=== PATIENT | female | born 1985 | race Caucasian/White ===

== ENCOUNTER 2018-09-09 15:01 | Emergency (ER) | payer OTHER ==
[2018-09-09 15:11] VITALS: BMI 21.2
[2018-09-09] MEDS ORDERED: ONDANSETRON 4 MG/2 ML VIAL IVPUSH ONE (15:11)
[2018-09-09] MEDS ORDERED: ACETAMINOPHEN 1000 MG/100 ML VIAL (NON FORMULARY) IVPB ONE (15:11)
--- NOTE | 2018-09-09 15:11 | PDOC ---
Rapid Medical Evaluation Medical Evaluation: Allergies Allergy/AdvReac Type Severity Reaction Status Date / Time No Known Allergies Allergy Verified 12/31/17 12:10 I have performed a brief in-person evaluation of this patient. The patient presents with a chief complaint of: was sent from clinic for RLQ abd pain from yesterday along with nausea; denies fever, vomiting, diarrhea, urinary complaints; no prior abd surgeries Pertinent physical exam findings: In nad, abdomen soft/NT I have ordered the following: labs The patient will proceed to the ED for further evaluation. 09/09/18 15:10
[2018-09-09] MEDS ORDERED: ONDANSETRON 4 MG/2 ML VIAL ONE (17:40)
[2018-09-09] MEDS ORDERED: ACETAMINOPHEN INJECTION 100 ML IVPB ONE (17:41)
[2018-09-09 18:19] LABS: PH,URINE 8.5 (5.0-8.0); URINE APPEARANCE CLOUDY; URINE BILIRUBIN NEGATIVE (NEGATIVE); URINE COLOR YELLOW; URINE GLUCOSE (UA) NEGATIVE (NEGATIVE); URINE KETONE NEGATIVE (NEGATIVE); URINE LEUK ESTERASE NEGATIVE (NEGATIVE); URINE NITRITE NEGATIVE (NEGATIVE); URINE PROTEIN NEGATIVE (NEGATIVE)
[2018-09-09 18:29] LABS: ALBUMIN 3.8 g/dl (3.4-5.0); BILIRUBIN,TOTAL 0.3 mg/dL (0.2-1); CALCIUM 9.2 mg/dL (8.5-10.1); CREATININE 0.8 mg/dL (0.55-1.3); POTASSIUM 4.4 mmol/L (3.5-5.1); TOT PROT 7.3 g/dl (6.4-8.2)
--- NOTE | 2018-09-09 18:30 | PDOC ---
History of Present Illness - General Chief Complaint: Pain Stated Complaint: ABD PAIN Time Seen by Provider: 09/09/18 15:08 History Source: Patient Exam Limitations: No Limitations - History of Present Illness Travel History: No Initial Comments: 09/09/18 18:05 33-year-old female presents to ED with complaints of right suprapubic pain since this morning worsened with movement. Patient denies nausea, urinary complaints, fever, chills, irregular menses or vaginal discharge. Patient states went to urgent care clinic and was referred here secondary to locality of discomfort. Timing/Duration: reports: constant, intermittent Quality: reports: mild Abdominal Pain Onset Location: reports: suprapubic Activities at Onset: reports: exertion Aggravating Factors: improves with: Movement Alleviating Factors: improves with: Rest Past History - Travel Traveled outside of the country in the last 30 days: No Close contact w/someone who was outside of country & ill: No - Past Medical History Allergies/Adverse Reactions: Allergies Allergy/AdvReac Type Severity Reaction Status Date / Time No Known Allergies Allergy Verified 09/09/18 15:12 Home Medications: Ambulatory Orders Acetaminophen 2 tab PO Q6H PRN #60 tablet 01/14/18 Sulfamethoxazole/Trimethoprim [Bactrim Ds -] 1 tab PO WEEKLY #12 tablet Triamcinolone 0.025% Cream [Aristocort 0.025% Cream -] 1 applic TP DAILY #15 tube 06/12/18 Loratadine [Claritin -] 10 mg PO DAILY PRN #30 tablet 06/26/18 Sodium Chloride [Saline Nasal Oneco] 1 - 2 sprays NS PRN #1 spray 06/26/18 Bictegrav/Emtricit/Tenofov Ala [Biktarvy 50-200-25 mg Tablet] 1 each PO DAILY # 30 tablet 09/04/18 Metronidazole [Metrogel] 1 applic TP DAILY #60 gel..gram. 09/04/18 Multivitamin,Ther and Minerals [Vitamin and Minerals] 1 each PO DAILY #30 tablet 09/04/18 Paroxetine HCl [Paxil] 10 mg PO AM #30 tablet 09/04/18 Ibuprofen 600 mg PO QID #20 tablet 09/09/18 Anemia: No Asthma: No Cancer: No Cardiac Disorders: No CVA: No COPD: No CHF: No Dementia: No Diabetes: No GI Disorders: No Disorders: No HTN: No Hypercholesterolemia: No Liver Disease: No Seizures: No Thyroid Disease: No - Suicide/Smoking/Psychosocial Hx Smoking History: Never smoked Information on smoking cessation initiated: No Hx Alcohol Use: No Drug/Substance Use Hx: No Hx Substance Use Treatment: No Patient Lives Alone: No Lives with/in: spouse/SO Review of Systems - Review of Systems Able to Perform ROS?: Yes Constitutional: No: Symptoms Reported HEENTM: No: Symptoms Reported Respiratory: No: Symptoms reported Cardiac (ROS): No: Symptoms Reported ABD/GI: Yes: Abdominal cramping : No: Symptoms Reported Musculoskeletal: No: Symptoms Reported Integumentary: No: Symptoms Reported Neurological: No: Symptoms reported Endocrine: No: Symptoms Reported Hematologic/Lymphatic: No: Symptoms Reported *Physical Exam - Vital Signs Last Vital Signs Temp Pulse Resp BP Pulse Ox 98.6 F 79 19 140/68 09/09/18 15:09 09/09/18 15:09 09/09/18 15:09 09/09/18 15:09 - Physical Exam General Appearance: Yes: Nourished, Appropriately Dressed. No: Apparent Distress HEENT: negative: Pale Conjunctivae Neck: positive: Normal Thyroid, Supple Respiratory/Chest: positive: Lungs Clear, Normal Breath Sounds. negative: Respiratory Distress, Accessory Muscle Use Cardiovascular: positive: Regular Rhythm, Regular Rate. negative: Murmur Female Pelvic Exam: positive: normal external exam. negative: discharge, vaginal bleeding Gastrointestinal/Abdominal: positive: Soft, Tenderness (right suprapubic no right lower quadrant tenderness) Musculoskeletal: negative: CVA Tenderness Extremity: positive: Normal Capillary Refill Integumentary: positive: Normal Color, Warm, Moist Neurologic: positive: Motor Strength 5/5 (ambulatory) ED Treatment Course - LABORATORY CBC & Chemistry Diagram: 09/09/18 17:50 09/09/18 17:50 - ADDITIONAL ORDERS Additional order review: Laboratory Results 09/09/18 09/09/18 17:50 17:50 Urine Color Yellow Urine Appearance Cloudy Urine pH 8.5 H D Ur Specific [place] 1.024 Urine Protein Negative Urine Glucose (UA) Negative Urine Ketones Negative Urine Blood Negative Urine Nitrite Negative Urine Bilirubin Negative Urine Urobilinogen 1.0 Ur Leukocyte Esterase Negative Urine HCG, Qual Negative - RADIOLOGY Radiology Studies Ordered: Category Date Time Status TRANSVAGINAL ULTRASOUND US [US] Stat Ultrasound 09/09/18 18:01 Ordered - Medications Given in the ED: ED Medications Discontinued Medications Generic Name Dose Route Start Last Admin Trade Name Roz PRN Reason Stop Dose Admin Acetaminophen 1,000 mg 09/09/18 15:11 09/09/18 17:45 Ofirmev Injection - IVPB 09/09/18 15:12 1,000 mg ONCE ONE Administration Ondansetron HCl 4 mg 09/09/18 15:11 09/09/18 17:45 Zofran Injection IVPUSH 09/09/18 15:12 4 mg ONCE ONE Administration Medical Decision Making - Medical Decision Making 09/09/18 18:11 CC: right suprapubic pain worsened with movement without urinary or vaginal complaints. Patient denies history of ovarian cyst Exam: Erythematous tenderness on exam without right lower quadrant or positive McBurney sign Plan labs, urine transvaginal ultrasound ordered 09/09/18 18:37 Laboratory Tests 09/09/18 09/09/18 09/09/18 17:50 17:50 17:50 Sodium 140 Potassium 4.4 Chloride 106 Carbon Dioxide 29 Anion Gap 5 L Est GFR (CKD-EPI)AfAm 112.27 Est GFR (CKD-EPI)NonAf 96.87 Random Glucose 94 Calcium 9.2 Total Bilirubin 0.3 AST 25 ALT 28 Alkaline Phosphatase 89 Total Protein 7.3 Albumin 3.8 Urine pH 8.5 H D Urine Ketones Negative Urine Blood Negative Urine Nitrite Negative Urine Bilirubin Negative Ur Leukocyte Esterase Negative Urine HCG, Qual Negative 09/09/18 18:38 Laboratory Tests 09/09/18 17:50 WBC 3.9 L Hgb 13.3 Hct 39.1 Absolute Neuts (auto) 2.2 Monocytes % 11.2 H Eosinophils % 6.4 H *DC/Admit/Observation/Transfer Diagnosis at time of Disposition: RLQ abdominal pain - Discharge Dispostion Disposition: HOME Condition at time of disposition: Stable - Prescriptions Prescriptions: Ibuprofen 600 mg PO QID #20 tablet - Referrals - Patient Instructions Printed Discharge Instructions: DI for Abdominal Pain-Adult Additional Instructions: drink plenty of fluids take ibuprofen as prescribed. return to the ER for any worsening symptoms. - Post Discharge Activity Forms/Work/School Notes: Back to Work
[2018-09-09 18:32] LABS: BASO % 0.9 % (0-2.0); EOS % 6.4 % (0-4.5); HEMATOCRIT 39.1 % (32.4-45.2); HEMOGLOBIN 13.3 GM/dL (10.7-15.3); LYMPH % 24.3 % (8-40); MCH 31.1 pg (25.7-33.7); MEAN CELL VOLUME 91.7 fl (80-96); MEAN PLT VOLUME 8.8 fl (7.5-11.1); MONO % 11.2 % (3.8-10.2); NEUT % 57.2 % (42.8-82.8); PLATELET COUNT 302 K/MM3 (134-434); RBC 4.27 M/mm3 (3.60-5.2); RDW 12.6 % (11.6-15.6); WHITE BLOOD COUNT 3.9 K/mm3 (4.0-10.0)
--- NOTE | 2018-09-09 19:27 | PDOC ---
*Physical Exam - Vital Signs Last Vital Signs Temp Pulse Resp BP Pulse Ox 98.6 F 79 19 140/68 09/09/18 15:09 09/09/18 15:09 09/09/18 15:09 09/09/18 15:09 - Physical Exam General Appearance: Yes: Appropriately Dressed Gastrointestinal/Abdominal: positive: Normal Bowel Sounds, Tender (RLQ), Soft Integumentary: positive: Normal Color, Dry, Warm Neurologic: positive: Fully Oriented, Alert, Normal Mood/Affect ED Treatment Course - LABORATORY CBC & Chemistry Diagram: 09/09/18 17:50 09/09/18 17:50 - ADDITIONAL ORDERS Additional order review: Laboratory Results 09/09/18 09/09/18 09/09/18 17:50 17:50 17:50 Sodium 140 Potassium 4.4 Chloride 106 Carbon Dioxide 29 Anion Gap 5 L BUN 9.0 Creatinine 0.8 Est GFR (CKD-EPI)AfAm 112.27 Est GFR (CKD-EPI)NonAf 96.87 Random Glucose 94 Calcium 9.2 Total Bilirubin 0.3 AST 25 ALT 28 Alkaline Phosphatase 89 Total Protein 7.3 Albumin 3.8 Urine Color Yellow Urine Appearance Cloudy Urine pH 8.5 H D Ur Specific [place] 1.024 Urine Protein Negative Urine Glucose (UA) Negative Urine Ketones Negative Urine Blood Negative Urine Nitrite Negative Urine Bilirubin Negative Urine Urobilinogen 1.0 Ur Leukocyte Esterase Negative Urine HCG, Qual Negative 09/09/18 17:50 RBC 4.27 MCV 91.7 MCHC 34.0 RDW 12.6 MPV 8.8 Neutrophils % 57.2 Lymphocytes % 24.3 D Monocytes % 11.2 H Eosinophils % 6.4 H Basophils % 0.9 - Medications Given in the ED: ED Medications Discontinued Medications Generic Name Dose Route Start Last Admin Trade Name Freq PRN Reason Stop Dose Admin Acetaminophen 1,000 mg 09/09/18 15:11 09/09/18 17:45 Ofirmev Injection - IVPB 09/09/18 15:12 1,000 mg ONCE ONE Administration Ondansetron HCl 4 mg 09/09/18 15:11 09/09/18 17:45 Zofran Injection IVPUSH 09/09/18 15:12 4 mg ONCE ONE Administration Medical Decision Making - Medical Decision Making 09/09/18 19:33 CT abdomen and pelvis: normal appendix 09/09/18 21:50 ct explained and discharge instructions given with [facility] head services. *DC/Admit/Observation/Transfer Diagnosis at time of Disposition: RLQ abdominal pain - Discharge Dispostion Disposition: HOME - Prescriptions Prescriptions: Ibuprofen 600 mg PO QID #20 tablet - Referrals - Patient Instructions Printed Discharge Instructions: DI for Abdominal Pain-Adult Additional Instructions: drink plenty of fluids take ibuprofen as prescribed. return to the ER for any worsening symptoms. - Post Discharge Activity Forms/Work/School Notes: Back to Work
[2018-09-09] MEDS ORDERED: SODIUM CHLORIDE 1,000 ML IV STA (19:49)
[2018-09-09 20:09] VITALS: PULSE 55; TEMP 98.4
[2018-09-09] MEDS ORDERED: KETOROLAC TROMETHAMINE 30 MG/1 ML VIAL IVPUSH ONE (21:41)
[2018-09-09] MEDS ORDERED: KETOROLAC TROMETHAMINE 30 MG/1 ML VIAL ONE (22:05)
[2018-09-09 22:25] VITALS: BP 106/78
== END 2018-09-09 22:27 | disposition home or self-care (01) ==
LOC: JER 15:01
PROC: 3E033GC Introduction of Other Therapeutic Substance into Peripheral Vein, Percutaneous Approach (ICD-10-PCS; principal; 2018-09-09)
DX: R10.31 Right lower quadrant pain (principal)
CPT/HCPCS: 36415; 74177-TC; 76830-TC; 80053; 81003; 84703; 85025; 96374; 96375; 99283-25; J0131